=== PATIENT | male | born 1980 | race Caucasian/White ===

== ENCOUNTER → 2022-01-16 11:43 | Outpatient (BNVA) | payer OTHER, SELFPAY | PROVIDERS: Visit Provider Registered Nurse Neonatal Intensive Care | DX: S62.346A Nondisplaced fracture of base of fifth metacarpal bone, right hand, initial encounter for closed fracture (principal); X58.XXXA Exposure to other specified factors, initial encounter | CPT/HCPCS: 73130 ==

== ENCOUNTER 2022-01-17 15:08 | Outpatient (CLI) | payer OTHER, SELFPAY | END 2022-01-17 15:09 | disposition home or self-care (01) | LOC: SPT 15:09 | PROVIDERS: Visit Provider Specialist | DX: Z46.89 Encounter for fitting and adjustment of other specified devices (principal); S62.396D Other fracture of fifth metacarpal bone, right hand, subsequent encounter for fracture with routine healing; X58.XXXD Exposure to other specified factors, subsequent encounter | CPT/HCPCS: 97760; L3984 ==

== ENCOUNTER → 2022-02-07 13:42 | Outpatient (BNVA) | payer OTHER, SELFPAY | PROVIDERS: Visit Provider Specialist | DX: S62.326D Displaced fracture of shaft of fifth metacarpal bone, right hand, subsequent encounter for fracture with routine healing (principal); X58.XXXD Exposure to other specified factors, subsequent encounter | CPT/HCPCS: 73130 ==

== ENCOUNTER → 2022-02-27 12:25 | Outpatient (BNVA) | payer OTHER, SELFPAY | PROVIDERS: Visit Provider Registered Nurse Neonatal Intensive Care | DX: S62.317A Displaced fracture of base of fifth metacarpal bone, left hand, initial encounter for closed fracture (principal); W55.22XA Struck by cow, initial encounter; M79.642 Pain in left hand | CPT/HCPCS: 73130 ==

== ENCOUNTER 2022-02-28 11:47 | Outpatient (CLI) | payer OTHER, SELFPAY | END 2022-02-28 11:48 | disposition home or self-care (01) | LOC: SPT 11:48 | PROVIDERS: Visit Provider Nurse Practitioner Family | DX: Z46.89 Encounter for fitting and adjustment of other specified devices (principal); S62.317D Displaced fracture of base of fifth metacarpal bone, left hand, subsequent encounter for fracture with routine healing; X58.XXXD Exposure to other specified factors, subsequent encounter | CPT/HCPCS: 97760; L3984 ==

== ENCOUNTER → 2022-03-14 13:56 | Outpatient (BNVA) | payer OTHER, SELFPAY | PROVIDERS: Visit Provider Nurse Practitioner Family | DX: S62.306D Unspecified fracture of fifth metacarpal bone, right hand, subsequent encounter for fracture with routine healing (principal); X58.XXXD Exposure to other specified factors, subsequent encounter | CPT/HCPCS: 73130 ==

== ENCOUNTER → 2022-04-18 11:04 | Outpatient (BNVA) | payer OTHER, SELFPAY | PROVIDERS: Visit Provider Nurse Practitioner Family | DX: S62.317D Displaced fracture of base of fifth metacarpal bone, left hand, subsequent encounter for fracture with routine healing (principal); X58.XXXD Exposure to other specified factors, subsequent encounter | CPT/HCPCS: 73130 ==

== ENCOUNTER 2024-02-24 15:22 | Emergency (ER) | payer OTHER, SELFPAY ==
[2024-02-24 15:35] VITALS: BP 216/134; PULSE 120; RESP 18; TEMP 36.8; O2SAT 99; BMI 20.3
[2024-02-24 15:53] VITALS: BP 191/122; PULSE 108; RESP 18; O2SAT 99
--- NOTE | 2024-02-24 15:56 | XR_ITS ---
WS: [id number] XR chest 1V portable [id number] REASON FOR EXAM: cxp FINDINGS: The heart and the mediastinum are within normal limits. Calcified granulomas disease in both hemithoraces. No acute pulmonary parenchymal or pleural abnormality is identified. No significant abnormality of the bony thorax. XR/XR chest 1V portable [id number] IMPRESSION: No acute chest abnormality.
--- NOTE | 2024-02-24 15:57 | ECG_ITS ---
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 Measurements Intervals [place] Rate: 111 P: 59 KS: 120 QRS: 41 QRSD: 94 T: 50 QT: 329 QTc: 448 Interpretive Statements SINUS TACHYCARDIA POSSIBLE RIGHT VENTRICULAR CONDUCTION DELAY [RSR (QR) IN V1/V2] LEFT VENTRICULAR HYPERTROPHY AND ST-T CHANGE [VOLTAGE CRITERIA PLUS ST/T ABNORMALITY] No previous ECG available for comparison Electronically Signed On 02-24-2024 22:50:39 CDT by Jean Paul Loza M.D. [id number]
[2024-02-24 16:09] LABS: Basophils % 0.6 %; Eosinophils % 0.2 %; Hematocrit 40.6 % (37-53); Lymphocytes # 0.8 10^3/uL (0.8-4.8); Lymphocytes % 17.6 %; Mean Corpuscular HGB Conc 35.5 g/dL (30-55); Mean Corpuscular Hemoglobin 34.7 pg (27-33); Mean Corpuscular Volume 97.8 fl (82-101); Mean Platelet Volume 11.1 fL (7.4-10.4); Monocytes # 0.4 10^3/uL (0.2-0.9); Neutrophils # 3.48 10^3/uL (1.8-7.7); Neutrophils % 73.2 %; Nucleated Red Blood Cells % 0 %; Platelet Count 151 10^3/cmm (157-399); Red Blood Count 4.15 10^6/uL (3.85-5.65); Red Cell Distribution Width 13.7 % (12.1-15.1); White Blood Count 4.76 10^3/uL (3.29-11.43)
[2024-02-24 16:20] LABS: Troponin(5th) Baseline 10 ng/L (0-15)
[2024-02-24 16:32] LABS: Alanine Aminotransferase 38 U/L (0-41); Albumin Level 4.9 g/dL (3.5-5.2); Alkaline Phosphatase 59 U/L (40-130); Aspartate Amino Transferase 73 U/L (0-40); Blood Urea Nitrogen 5 mg/dL (6-20); Calcium 9.9 mg/dL (8.5-10.5); Carbon Dioxide 28 mmol/L (22-29); Chloride 97 mmol/L (98-107); Creatinine Clr Calc Pharmacy 141.9888; Globulin 3.4 g/dL (1.3-4.6); Glomerular Filtration Rate 123.1 mL/min (90-130); Glucose 115 mg/dL (65-115); NT Pro B Type Natriuretic Pept 40 pg/mL (0-125); Osmolality Calculated 286 mOsm/kg (285-295); Sodium 139 mmol/L (136-145); Total Bilirubin 0.7 mg/dL (0.15-1.2); Total Protein 8.3 g/dL (6.6-8.7)
[2024-02-24 16:41] VITALS: BP 205/131
[2024-02-24] MEDS: cloNIDine 0.1 mg Tablet 0.100000000000000006 MG PO (16:41)
[2024-02-24] MEDS: metoprolol tartrate 1 mg/1 mL SDV 5 mL 5 MG IVP (16:42)
[2024-02-24 16:47] LABS: Amphetamines Screen Urine Negative (Negative); Barbiturates Screen Urine Negative (Negative); Benzodiazepines Screen Urine Negative (Negative); Cocaine Screen Urine Negative (Negative); Opiate Screen Urine Negative (Negative); PCP Screen Urine Negative (Negative); THC Screen Urine Negative (Negative)
[2024-02-24 16:49] LABS: Anion Gap 17.5 (5-19); Potassium 3.5 mmol/L (3.5-5.1)
[2024-02-24 16:53] VITALS: BP 185/124; PULSE 85; RESP 23; O2SAT 97
--- NOTE | 2024-02-24 17:10 | ED_ITS ---
HPI - Arrhythmia/Palpitations 2 General: Chief Complaint: Arrhythmia/Palpitations Stated Complaint: elevated Bp, sent by Leisa Time Seen by Provider: 02/24/24 15:56 History of Present Illness: 43-year-old male presents emergency depa rtment stating that he was at work today and felt like his heart was racing he states he had a coworker check his blood pressure and it was over 200. He states he has not had any shortness of breath or chest pain. He is accompanied by his significant other who states that he has been prescribed antihypertensive medication in the past but he has stopped that as his blood pressure had improved and he had stopped drinking alcohol. His significant other states that every time he drinks alcohol he has uncontrolled hypertension and the patient does endorse recently starting to drink alcohol daily. He states he drinks slightly less than a pint of whiskey daily. Review of Systems 2 Card: Reports: palpitations; Denies: chest pain or irregular heart rhythm Resp: Denies: dyspnea Neuro: Denies: headache(s) PFSH ED 2 PFSH: Social History Smoking and tobacco/nicotine status: current every day tobacco/nicotine user Physical Exam 2 Narrative: EXAM NARRATIVE: General: Alert, no acute distress. Skin: Warm, dry, Intact. Head: Normocephalic, atraumatic. Neck: Supple, trachea midline. Eye: Extraocular movements are intact. PERRLA Ears, nose, mouth and throat: mucosa moist. Cardiovascular: Sinus tachycardia, Normal peripheral perfusion. Positive S1, S2, no murmurs, rubs or gallops. No edema. Respiratory: Lungs are clear to auscultation, respirations are non-labored, breath sounds are equal, Symmetrical chest wall expansion. Gastrointestinal: Soft, Nontender, Non distended, Normal bowel sounds. Musculoskeletal: Normal ROM, no deformity. Neurological: Alert and oriented, No focal neurological deficit observed. Psychiatric: Cooperative, appropriate mood & affect. Course 2 Vital Signs: Vital signs: Vital Signs Temperature 98.2 F 02/24/24 15:35 Pulse Rate 94 02/24/24 18:09 Respiratory Rate 21 H 02/24/24 17:45 Blood Pressure 155/108 02/24/24 17:45 Pulse Oximetry 96 02/24/24 18:09 Oxygen Delivery Me thod Room Air 02/24/24 15:53 MDM - Arrhythmia/Palpitations Medical Decision Making Physical exam completed and documented I did obtain a CBC and CMP cardiac enzymes and twelve-lead EKG which were essentially negative with exception of some tachycardia and elevated blood pressure secondary to his recent alcohol consumption. I will provide him written prescriptions at discharge and have him follow-up with his primary care provider. Medical Records I reviewed the patient's medical records. Lab Data I reviewed the patient's lab results. 02/24/24 15:50 02/24/24 15:50 Radiology Impressions Chest X-Ray 02/24/24 15:56 IMPRESSION: No acute chest abnormality. Laboratory Results WBC 4.76 10^3/uL (3.29-11.43) 02/24/24 15:50 RBC 4.15 10^6/uL (3.85-5.65) 02/24/24 15:50 Hgb 14.40 g/dL (11.27-16.99) 02/24/24 15:50 Hct 40.6 % (37-53) 02/24/24 15:50 MCV 97.8 fl (82-101) 02/24/24 15:50 MCH 34.7 pg (27-33) H 02/24/24 15:50 MCHC 35.5 g/dL (30-55) 02/24/24 15:50 RDW 13.7 % (12.1-15.1) 02/24/24 15:50 Plt Count 151 10^3/cmm (157-399) L 02/24/24 15:50 MPV 11.1 fL (7.4-10.4) H 02/24/24 15:50 Neut % (Auto) 73.2 % 02/24/24 15:50 Lymph % (Auto) 17.6 % 02/24/24 15:50 Gates % (Auto) 8.0 % 02/24/24 15:50 Eos % (Auto) 0.2 % 02/24/24 15:50 Baso % (Auto) 0.6 % 02/24/24 15:50 Neut # (Auto) 3.48 10^3/uL (1.8-7.7) 02/24/24 15:50 Lymph # (Auto) 0.8 10^3/uL (0.8-4.8) 02/24/24 15:50 Gates # (Auto) 0.4 10^3/uL (0.2-0.9) 02/24/24 15:50 Eos # (Auto) 0.0 10^3/uL (0.0-0.8) 02/24/24 15:50 Baso # (Auto) 0.0 10^3/uL (0.0-0.1) 02/24/24 15:50 Nucleated RBC % (auto) 0 % 02/24/24 15:50 Nucleated RBCs # 0.0 /100WBC 02/24/24 15:50 Sodium 139 mmol/L (136-145) 02/24/24 15:50 Potassium 3.5 mmol/L (3.5-5.1) 02/24/24 15:50 Chloride 97 mmol/L (98-107) L 02/24/24 15:50 Carbon Dioxide 28 mmol/L (22-29) 02/24/24 15:50 Anion Gap 17.5 (5-19) 02/24/24 15:50 BUN 5 mg/dL (6-20) L 02/24/24 15:50 Creatinine 0.7 mg/dL (0.7-1.2) 02/24/24 15:50 GFR Calculation 123.1 mL/min (90-130) 02/24/24 15:50 Glucose 115 mg/dL (65-115) 02/24/24 15:50 Calculated Osmolality 286 mOsm/kg (285-295) 02/24/24 15:50 Calcium 9.9 mg/dL (8.5-10.5) 02/24/24 15:50 Total Bilirubin 0.7 mg/dL (0.15-1.2) 02/24/24 15:50 AST 73 U/L (0-40) H 02/24/24 15:50 ALT 38 U/L (0-41) 02/24/24 15:50 Alkaline Phosphatase 59 U/L (40-130) 02/24/24 15:50 Troponin T Baseline 10 ng/L (0-15) 02/24/24 15:50 NT-Pro-B Natriuret Pep 40 pg/mL (0-125) 02/24/24 15:50 Total Protein 8.3 g/dL (6.6-8.7) 02/24/24 15:50 Albumin 4.9 g/dL (3.5-5.2) 02/24/24 15:50 Globulin 3.4 g/dL (1.3-4.6) 02/24/24 15:50 Urine Opiates Screen Negative ng/mL (Negative) 02/24/24 16:26 Ur Barbiturates Screen Negative ng/mL (Negative) 02/24/24 16:26 Ur Phencyclidine Scrn Negative ng/mL (Negative) 02/24/24 16:26 Ur Amphetamines Screen Negative ng/mL (Negative) 02/24/24 16:26 U Benzodiazepines Scrn Negative ng/mL (Negative) 02/24/24 16:26 Urine Cocaine Screen Negative ng/mL (Negative) 02/24/24 16:26 U Marijuana (THC) Screen Negative ng/mL (Negative) 02/24/24 16:26 All radiology interpretation(s) finalized by discharge EKG Data EKG 1: Interpretation: Twelve-lead EKG obtained at 1534 and reviewed at 1536 demonstrates sinus tachycardia, ventricular rate 111, [place] interval 120, QRS duration 94, QT 329 QTc [address] elevation or depression to demonstrate acute ischemia or infarction at present. Other EKG comments: Chest X-Ray 02/24/24 15:56 IMPRESSION: No acute chest abnormality. 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 Please realize that you were seen in the Emergency Department and that we are providing you with an emergency medical screening exam and this may not be a complete and all inclusive of all the testing and or medical work-up that you may need to determine your ailment or severity of your illness. It is very important that you follow-up as instructed with your Primary care provider or Specialist for additional evaluation and to discuss your medical treatment plan. You may return to the Emergency Department should you have concerns or if your condition changes or worsens in any way. [facility] [address] [place] [address] Inpatient, outpatient, detox, [facility] [address] [place] [address] Outpatient, detox [facility] [address] [place] [address] Outpatient, detox [facility] [address] [phone] Inpatient, Outpatient, [facility] [address] [place], [place] [address] Inpatient, outpatient, detox Coding Level of Care Code ED Width Stripper for Jose Ovalle
[2024-02-24] MEDS: hyDRALAzine 20 mg/mL INJ 1 mL 10 MG IVP (17:28)
[2024-02-24 17:45] VITALS: BP 155/108; PULSE 90; RESP 21; O2SAT 97
[2024-02-24 18:09] VITALS: PULSE 94; O2SAT 96
== END 2024-02-24 18:15 | disposition home or self-care (01) ==
PROVIDERS: Emergency Provider Internal Medicine
DX: I10 Essential (primary) hypertension (principal); R00.0 Tachycardia, unspecified; F10.20 Alcohol dependence, uncomplicated; Z72.0 Tobacco use
CPT/HCPCS: 71045; 80053; 80306; 83880; 84484; 85025; 93005; 96374; 96375; 99285; J0360; J3490

== ENCOUNTER → 2024-05-26 18:24 | Outpatient (BNVA) | payer OTHER, SELFPAY | PROVIDERS: Visit Provider Nurse Practitioner Family | DX: I10 Essential (primary) hypertension (principal); R53.83 Other fatigue | CPT/HCPCS: 80061; 84443 ==